=== PATIENT | male | born 1970 | race Caucasian/White ===

== ENCOUNTER → 2018-04-01 | Outpatient (REF) | LOC: M SMT 09:42 | DX: Z00.00 Encounter for general adult medical examination without abnormal findings (principal) ==

== ENCOUNTER → 2024-04-14 | Outpatient (REF) | LOC: M PLAIMG 09:45 | PROVIDERS: ATTEND Internal Medicine | DX: M25.562 Pain in left knee (principal); M54.50 Low back pain, unspecified ==

== ENCOUNTER → 2024-10-05 | Outpatient (REF) | LOC: M PLAIMG 09:52 | PROVIDERS: ATTEND Internal Medicine | DX: M54.50 Low back pain, unspecified (principal) ==